=== PATIENT | female | born 1990 | race Caucasian/White ===

== ENCOUNTER 2016-08-29 01:57 | Emergency (ER) | payer OTHER ==
[2016-08-29 01:58] VITALS: BMI 29.8
[2016-08-29 03:22] LABS: RBC URINE 8 /hpf (0-3); URINE BACTERIA RARE (<OCC); URINE BILIRUBIN NEGATIVE (NEGATIVE); URINE BLOOD 1+ (NEGATIVE); URINE COLOR Yellow (YELLOW); URINE GLUCOSE (UA) NORMAL (Normal); URINE KETONE TRACE mg/dL (NEGATIVE); URINE LEUKOCYTE ESTERASE 3+ Leu/uL (Negative); URINE PROTEIN NEGATIVE (NEGATIVE); URINE UROBILINOGEN NORMAL mg/dL (0.2-1.0); WBC URINE 25 /hpf (0-5)
[2016-08-29] MEDS ORDERED: Sodium Chloride 0.9% 1,000 ML IV STA (03:57)
[2016-08-29 04:27] LABS: BASO # 0.1 K/uL (0.0-0.2); BASO % 0.6 % (0.0-2.0); EOS # 0.4 K/uL (0.0-0.7); EOS % 4.8 % (0.0-4.0); HEMATOCRIT 38.1 % (34.0-47.0); LYMPH # 2.5 K/uL (1.0-4.3); LYMPH % 27.3 % (20.0-40.0); MEAN CELL VOLUME 73.6 fL (81.0-99.0); MEAN CORPUSCULAR HEMOGLOBIN 24.2 pg (27.0-31.0); MEAN CORPUSCULAR HGB CONC 32.9 g/dL (33.0-37.0); MEAN PLATELET VOLUME 8.7 fL (7.2-11.7); MONO # 0.5 K/uL (0.0-0.8); MONO % 5.4 % (0.0-10.0); RED CELL DISTRIBUTION WIDTH 20.9 % (11.5-14.5); WHITE BLOOD COUNT 9.3 K/uL (4.8-10.8)
[2016-08-29 04:34] LABS: CHLORIDE 100 mmol/L (98-107)
[2016-08-29 04:35] LABS: POTASSIUM 3.9 mmol/L (3.6-5.2); SODIUM 139 mmol/L (132-148)
[2016-08-29 04:37] LABS: ALB/GLOB RATIO 1.2 (1.0-2.1); BILIRUBIN,TOTAL 0.8 mg/dL (0.2-1.3); CARBON DIOXIDE 26 mmol/L (22-30); GFR AFRICAN-AMERICAN > 60; TOTAL PROTEIN 8.6 g/dL (6.3-8.3)
[2016-08-29 04:38] LABS: ALKALINE PHOSPHATASE 96 U/L (38-126); ALT/SGPT 23 U/L (9-52); AST/SGOT 23 U/L (14-36); BLOOD UREA NITROGEN 13 mg/dL (7-17); CALCIUM 9.1 mg/dl (8.6-10.4); GLUCOSE,RANDOM 80 mg/dL (65-105)
--- NOTE | 2016-08-29 05:55 | C.PDOC ---
History Of Present Illness Patient c/o pelvic pain started 1 week ago. Patient sts she was seen in the [facility] 1 week ago, had UA, blood work and CT of abdomen/pelvis. CT was positive for Proctitis. Patient sts she was treated in ED with Antibiotic IV x 1 and was d/c home with no medications. Patient bao she felt better for few day and developed pelvic pain again, associated with vaginal itching and white vaginal d/c. Patient bao she has an appointment with PMD later today. Patient is 2 months post and breast feeding. Time Seen by Provider: 08/29/16 02:56 Chief Complaint (Nursing): Abdominal Pain History Per: Patient History/Exam Limitations: no limitations Onset/Duration Of Symptoms: Days (7) Current Symptoms Are (Timing): Still Present Severity: Moderate Pain Scale Rating Of: 5 Location Of Pain/Discomfort: Suprapubic Radiation Of Pain To:: None Quality Of Discomfort: Aching Associated Symptoms: Other (vaginal d/c and itching) Exacerbating Factors: None Alleviating Factors: None Last Bowel Movement: Yesterday Recent travel outside of the [place]: No Past Medical History Reviewed: Historical Data, Nursing Documentation, Vital Signs Vital Signs: Last Vital Signs Temp 97.8 F 08/29/16 06:22 Pulse 88 08/29/16 06:22 Resp 16 08/29/16 06:22 BP 120/80 08/29/16 06:22 Pulse Ox 98 08/29/16 06:22 - Medical History PMH: No Chronic Diseases Surgical History: No Surg Hx Family History: States: Unknown Family Hx - Social History Hx Tobacco Use: Yes Hx Alcohol Use: No Hx Substance Use: No - Immunization History Hx Tetanus Toxoid Vaccination: No Hx Influenza Vaccination: Yes Hx Pneumococcal Vaccination: No Review Of Systems Except As Marked, All Systems Reviewed And Found Negative. Physical Exam - Physical Exam Appears: Well, Non-toxic, No Acute Distress Skin: Normal Color, Warm, No Diaphoretic Head: Atraumatic, Normacephalic Eye(s): bilateral: Normal Inspection Chest: Symmetrical, No Tenderness Cardiovascular: Rhythm Regular Respiratory: Normal Breath Sounds, No Accessory Muscle Use, No Rales Gastrointestinal/Abdominal: Soft, Tenderness (suprapubic), No Guarding, No Rebound Rectal: Heme Negative, No Hemorrhoids, No Mass, No Tenderness Pelvic: Normal Bimanual Exam, Vaginal Discharge (cottage cheese like white d/c) , No Adnexal Tenderness, Other (no cervicities) Neurological/Psych: Oriented x3, Normal Speech, Normal Cognition ED Course And Treatment - Laboratory Results Result Diagrams: 08/29/16 04:23 08/29/16 04:23 O2 Sat by Pulse Oximetry: 95 - CT Scan/US Pelvic US Other Rad Studies (CT/US): Read By Radiologist, Radiology Report Reviewed CT/US Interpretation: Addendum created by Jose Alejandro Israel MD on 08/29/2016 5:49 AM Eastern Time ([place] & [place]). Addendum: Endometrium measures 6.5 mm in thickness. Initial Report created on 08/29/2016 5:48 AM Eastern Time ([place] & [place] ). EXAM: US Pelvis Complete, Transabdominal. US Pelvis, Transvaginal. CLINICAL HISTORY: 26 years old, female; Pain; Pelvic pain. TECHNIQUE: Real- time transabdominal and transvaginal pelvic ultrasound (complete) with image documentation. Transvaginal imaging was used for better evaluation of the endometrium and adnexa. COMPARISON: No relevant prior studies available. FINDINGS: Uterus/cervix: Uterus measures 9.6 x 4.9 x 5.6 CM. Normal endometrial stripe thickness. No. myometrial mass. Right ovary: Right ovary measures 4.2 x 2.3 x 3 CM. Normal blood flow. Left ovary: Left ovary measures 3 x 3 x 2.3 CM. Normal blood flow. Free fluid: No free fluid. IMPRESSION: Unremarkable pelvic ultrasound. Thank you for allowing us to participate in the care of your patient. Dictated and Authenticated by: Jose Alejandro Israel MD. 08/29/2016 5:48 AM Eastern Time ([place] & [place]) Progress Note: Patient was treated with Diflucan and Macribid and she was d/c home with PMD follow up. Disposition - Disposition Disposition: HOME/ ROUTINE Disposition Time: 05:57 Condition: STABLE Additional Instructions: Follow up with Clinic as previously instructed. Return to ED if feel worse. Prescriptions: Nitrofurantoin Macrocrystals [Macrobid] 1 cap PO BID #14 cap Ibuprofen [Motrin Tab] 400 mg PO Q8 #30 tab Instructions: Urinary Tract Infection in Women (ED) - Clinical Impression Clinical Impression: Pelvic pain, UTI (urinary tract infection)
[2016-08-29 06:23] VITALS: BP 120/80; PULSE 88; RESP 16; TEMP 97.8
[2016-08-29 06:33] VITALS: O2SAT 95
--- NOTE | 2016-08-29 13:23 | US ---
HISTORY: pelvic pain. LMP 09/22/2015 COMPARISON: Pelvic ultrasound 11/02/2014 TECHNIQUE: Grayscale and color Doppler sonographic images were obtained of the pelvis utilizing transabdominal and transvaginal approach. FINDINGS: UTERUS: Anteverted and normal in size measuring 9.6 x 5.6 x 5.7 cm. ENDOMETRIUM: Normal in caliber endometrial stripe measures 0.7 cm. CERVIX: Nabothian cyst noted. RIGHT OVARY: Measures 4.2 x 2.2 x 3 cm. Multiple follicles noted.Normal flow. LEFT OVARY: Measures 3 x 3 x 2.3 cm. Multiple follicles noted.Normal flow. FREE FLUID: No pelvic free fluid is seen. OTHER FINDINGS: None. IMPRESSION: Unremarkable pelvic ultrasound. Preliminary impression was provided by [facility]. Findings are concordant.
== END 2016-08-29 06:22 | disposition home or self-care (01) ==
LOC: C.ER 01:57
DX: N39.0 Urinary tract infection, site not specified (principal); R10.2 Pelvic and perineal pain
CPT/HCPCS: 76830; 76856; 80053; 81001; 83690; 84703; 85025; 87086; 87491; 87591; 96360; 99283; G0328; J7040